=== PATIENT | female | born 1975 | race Caucasian/White ===

== ENCOUNTER 2017-04-07 12:55 | Emergency (ER) | payer MEDICAID, OTHER ==
[~2017-04-07] VITALS: Ht 160 cm; Wt 98.4 kg
[2017-04-07 13:01] VITALS: BP 131/83
== END 2017-04-07 13:39 | disposition home or self-care (01) ==
LOC: ER 12:55
DX: J37.0 Chronic laryngitis (principal)

== ENCOUNTER 2019-07-30 12:04 | Emergency (ER) | payer OTHER, MEDICAID ==
[~2019-07-30] VITALS: Ht 157.5 cm; Wt 88.5 kg
[2019-07-30 13:08] LABS: Basophils # (auto) 0 uL; Basophils % (auto) 0.3 % (0.0-2.0); Eosinophils # (auto) 0.1 uL; Eosinophils % (auto) 0.6 % (0.0-7.0); Hemoglobin 14.4 g/dL (12.2-16.2); Mean Corpuscular Hemoglobin 31.8 pg (28.0-32.0); Mean Corpuscular Hgb Conc. 33.6 g/dL (32.0-36.0); Mean Corpuscular Volume 94.5 fL (80.0-100.0); Monocytes # (auto) 0.7 uL; Monocytes % (auto) 6.3 % (0.0-12.0); Neutrophils # (auto) 9.2 uL; Neutrophils % (auto) 83.8 % (37.0-80.0); Platelet Count (auto) 274 10^3/uL (140-450); Red Blood Cells 4.54 10^6/uL (4.0-5.20); Red Cell Distribution Width 13.7 % (11.8-14.3)
[2019-07-30 13:24] LABS: Albumin 3.9 g/dL (3.4-5.0); Anion Gap 7 (5-15); Blood Urea Nitrogen 9 mg/dL (7-18); Calcium 8.5 mg/dL (8.5-10.1); Carbon Dioxide 24 mmol/L (21-32); Chloride 106 mmol/L (98-107); Glucose 105 mg/dL (74-106); Potassium 3.7 mmol/L (3.5-5.1); Sodium 137 mmol/L (136-145)
[2019-07-30 13:30] LABS: Alanine Aminotransferase 21 U/L (13-56); Alkaline Phosphatase 63 U/L (45-117); Aspartate Aminotransferase 13 U/L (15-37); BUN/Creatinine Ratio 11.5; Bilirubin, Total 0.7 mg/dL (0.2-1.0); GFR African American 104 mL/min; GFR Non-African American 86 mL/min; INR 0.96 (0.9-1.15); Partial Thromboplastin Time 28.4 sec (23.64-32.05); Total Protein 7.4 g/dL (6.4-8.2)
[2019-07-30 19:36] VITALS: BP 138/80
== END 2019-07-30 20:40 | disposition home or self-care (01) ==
LOC: ER 12:04
DX: K21.9 Gastro-esophageal reflux disease without esophagitis (principal)
CPT/HCPCS: 36415; 71045; 80053; 84484; 85025; 85379; 85610; 85730; 93005

== ENCOUNTER 2022-07-21 13:39 | Inpatient (IN) | payer BC, MEDICAID ==
[~2022-07-21] VITALS: Ht 160 cm; Wt 85.0 kg
[2022-07-21] MEDS ORDERED: ONDANSETRON HCL 4 MG/2 ML VIAL IV ONE (14:00)
[2022-07-21] MEDS ORDERED: PANTOPRAZOLE 40 MG/10 ML VIAL INJ IV ONE (14:00)
[2022-07-21 14:05] LABS: Basophils # (auto) 0 10 ^3/uL (0-0.2); Basophils % (auto) 0.4 % (0.0-2.0); Eosinophils # (auto) 0.1 10 ^3/uL (0-0.8); Eosinophils % (auto) 0.8 % (0.0-7.0); Hematocrit 43.3 % (36.0-46.0); Hemoglobin 14.4 g/dL (12.2-16.2); Lymphocytes # (auto) 1.5 10 ^3/uL (0.4-5.4); Lymphocytes % (auto) 12.7 % (10.0-50.0); Mean Corpuscular Hemoglobin 31.8 pg (28.0-32.0); Mean Corpuscular Hgb Conc. 33.2 g/dL (32.0-36.0); Mean Corpuscular Volume 95.8 fL (80.0-100.0); Monocytes # (auto) 0.8 10 ^3/uL (0-1.3); Monocytes % (auto) 7.1 % (0.0-12.0); Neutrophils # (auto) 9.1 10 ^3/uL (1.6-8.6); Red Blood Cells 4.52 10^6/uL (4.0-5.20); Red Cell Distribution Width 13.9 % (11.8-14.3); White Blood Cell 11.5 10^3/uL (4.4-10.8)
[2022-07-21 14:21] LABS: Calcium 8.8 mg/dL (8.5-10.1); Potassium 3.8 mmol/L (3.5-5.1)
[2022-07-21 14:24] LABS: Albumin 3.8 g/dL (3.4-5.0); BUN/Creatinine Ratio 9.9
[2022-07-21 14:27] LABS: Bilirubin, Total 1.6 mg/dL (0.2-1.0)
[2022-07-21 14:37] LABS: INR 0.91 (0.9-1.15); Partial Thromboplastin Time 29.5 sec (24.6-33.4)
[2022-07-21] MEDS ORDERED: MORPHINE SULFATE 4 MG/ML SYR/VIAL IV ONE (17:00)
[2022-07-21] MEDS ORDERED: NITROGLYCERIN 0.4 MG SL TAB SL PRN (17:00)
[2022-07-21] MEDS ORDERED: MORPHINE SULFATE INJ 2 MG/ml SYRG IV PRN (17:00)
[2022-07-21] MEDS ORDERED: SODIUM CHLORIDE 0.9% 1,000 ML IV ONE (17:00)
[2022-07-21] MEDS: PIPERACILLIN-TAZOB 3.375GM 100 ML IV SCH ×2 (17:27→18:00)
[2022-07-21] MEDS ORDERED: D5W/SOD CHL 0.45%/KCL 20MEQ 1,000 ML IV ONE (17:45)
[2022-07-21] MEDS: ONDANSETRON HCL 4 MG/2 ML VIAL IV PRN (20:06)
[2022-07-21] MEDS: MORPHINE SULFATE INJ 2 MG/ml SYRG IV PRN (20:15)
[2022-07-21] MEDS: hydrALAZINE HCL 20 MG/ML VL IV PRN (20:15)
[2022-07-22] MEDS: PIPERACILLIN-TAZOB 3.375GM 100 ML IV SCH ×4 (00:06→18:32)
[2022-07-22] MEDS: ONDANSETRON HCL 4 MG/2 ML VIAL IV PRN ×2 (00:07→04:11)
[2022-07-22] MEDS: hydrALAZINE HCL 20 MG/ML VL IV PRN ×2 (05:27→21:17)
[2022-07-22 05:50] LABS: Basophils # (auto) 0 10 ^3/uL (0-0.2); Basophils % (auto) 0.1 % (0.0-2.0); Eosinophils # (auto) 0 10 ^3/uL (0-0.8); Hematocrit 42.4 % (36.0-46.0); Hemoglobin 13.8 g/dL (12.2-16.2); Lymphocytes # (auto) 0.7 10 ^3/uL (0.4-5.4); Lymphocytes % (auto) 4.5 % (10.0-50.0); Mean Corpuscular Hemoglobin 31.4 pg (28.0-32.0); Mean Corpuscular Hgb Conc. 32.6 g/dL (32.0-36.0); Mean Corpuscular Volume 96.2 fL (80.0-100.0); Monocytes # (auto) 0.7 10 ^3/uL (0-1.3); Monocytes % (auto) 4.6 % (0.0-12.0); Neutrophils # (auto) 13.2 10 ^3/uL (1.6-8.6); Neutrophils % (auto) 90.8 % (37.0-80.0); Red Blood Cells 4.41 10^6/uL (4.0-5.20); White Blood Cell 14.5 10^3/uL (4.4-10.8)
[2022-07-22 05:59] LABS: Calcium 8.4 mg/dL (8.5-10.1); Potassium 4.3 mmol/L (3.5-5.1)
[2022-07-22 06:05] LABS: Albumin 3.6 g/dL (3.4-5.0); BUN/Creatinine Ratio 7.8; Bilirubin, Total 1.5 mg/dL (0.2-1.0); Total Protein 7.2 g/dL (6.4-8.2)
[2022-07-22] MEDS ORDERED: BUPIVACAINE 0.5% P/F INJ 10 ML VIAL ONE (06:48)
[2022-07-22] MEDS ORDERED: METHYLENE BLUE 0.5% 5MG/ML 10ml AMP IV ONE (06:48)
[2022-07-22] MEDS ORDERED: SUCCINYLCHOLINE CHLORIDE 20 MG/ML 10ML VIAL IV ONE (06:58)
[2022-07-22] MEDS ORDERED: ROCURONIUM 10MG/ML 10ML VIAL IV ONE (06:58)
[2022-07-22] MEDS ORDERED: MORPHINE SULFATE INJ 2 MG/ml SYRG IV PRN (07:15)
[2022-07-22] MEDS ORDERED: METOCLOPRAMIDE HCL 5MG/ml INJ 2ml VIAL IV PRN (07:15)
[2022-07-22] MEDS ORDERED: HYDROmorphone HCL 2 MG/ML VL/or syr IV PRN ×2 (07:15)
[2022-07-22] MEDS ORDERED: MIDAZOLAM HCL 2MG/2ML 2ml VIAL (1mg/ml) ONE (07:18)
[2022-07-22] MEDS ORDERED: fentaNYL CITRATE 100 MCG/2 ML VL ONE (07:18)
[2022-07-22] MEDS ORDERED: DexAMETHasone SOD PHOS 10MG/1ML VIAL INJ ONE (07:19)
[2022-07-22] MEDS ORDERED: SODIUM CHLORIDE LOCK 10 ML ONE (07:19)
[2022-07-22] MEDS ORDERED: NEOSTIGMINE 1 MG/ML INJ (10mg/10ML VIAL) ONE (07:19)
[2022-07-22] MEDS ORDERED: GLYCOPYRROLATE 0.2 MG/ML 1ML VIAL ONE (07:19)
[2022-07-22] MEDS ORDERED: PROPOFOL 10 MG/ML 20 ML IV ONE (07:19)
[2022-07-22] MEDS ORDERED: MEPERIDINE HCL (50 MG/ML) 1 ML VIAL ONE (07:19)
[2022-07-22] MEDS: LIDOCAINE W/ EPINEPHRINE 1% 20ML VIAL ONE ×2 (08:21→09:45)
[2022-07-22] MEDS ORDERED: ceFAZolin 1GM/50ML 100 ML IV ONE (08:42)
[2022-07-22] MEDS ORDERED: HYDROmorphone HCL 2 MG/ML VL/or syr IV ONE (10:30)
[2022-07-22] MEDS: D5W/SOD CHL 0.45%/KCL 20MEQ 1,000 ML IV SCH (14:30)
[2022-07-22 22:00] VITALS: BP 164/87
[2022-07-22] MEDS: ACETAMINOPHEN 325 MG TAB PO PRN (23:25)
[2022-07-23] MEDS: D5W/SOD CHL 0.45%/KCL 20MEQ 1,000 ML IV SCH ×3 (00:03→19:50)
[2022-07-23] MEDS: PIPERACILLIN-TAZOB 3.375GM 100 ML IV SCH ×4 (00:40→19:39)
[2022-07-23 05:00] VITALS: BP 146/80
[2022-07-23 05:29] LABS: Basophils # (auto) 0 10 ^3/uL (0-0.2); Basophils % (auto) 0.2 % (0.0-2.0); Eosinophils # (auto) 0 10 ^3/uL (0-0.8); Eosinophils % (auto) 0.1 % (0.0-7.0); Hematocrit 38.3 % (36.0-46.0); Hemoglobin 12.3 g/dL (12.2-16.2); Lymphocytes # (auto) 1.5 10 ^3/uL (0.4-5.4); Lymphocytes % (auto) 12.2 % (10.0-50.0); Mean Corpuscular Hemoglobin 31.1 pg (28.0-32.0); Mean Corpuscular Hgb Conc. 32.2 g/dL (32.0-36.0); Mean Corpuscular Volume 96.7 fL (80.0-100.0); Monocytes # (auto) 0.9 10 ^3/uL (0-1.3); Monocytes % (auto) 7.9 % (0.0-12.0); Neutrophils # (auto) 9.6 10 ^3/uL (1.6-8.6); Neutrophils % (auto) 79.6 % (37.0-80.0); Red Blood Cells 3.96 10^6/uL (4.0-5.20)
[2022-07-23] MEDS: ACETAMINOPHEN 325 MG TAB PO PRN ×2 (05:29→21:57)
[2022-07-23 05:41] LABS: Albumin 3.1 g/dL (3.4-5.0); Calcium 7.8 mg/dL (8.5-10.1); Potassium 3.5 mmol/L (3.5-5.1)
[2022-07-23 05:45] LABS: BUN/Creatinine Ratio 6.8; Bilirubin, Total 1.7 mg/dL (0.2-1.0); Total Protein 5.8 g/dL (6.4-8.2)
[2022-07-23] MEDS ORDERED: ONDA-144 PO (08:31)
[2022-07-23] MEDS ORDERED: ACET325T10 PO (08:31)
[2022-07-23 08:49] VITALS: BP 136/77
[2022-07-23] MEDS: PANTOPRAZOLE 40 MG/10 ML VIAL INJ IV SCH (10:00)
[2022-07-23] MEDS: MORPHINE SULFATE INJ 2 MG/ml SYRG IV PRN (12:01)
[2022-07-23] MEDS: ONDANSETRON HCL 4 MG/2 ML VIAL IV PRN ×2 (12:01→15:02)
[2022-07-23 12:53] VITALS: BP 159/93
[2022-07-23] MEDS: hydrALAZINE HCL 20 MG/ML VL IV PRN (16:18)
[2022-07-23 17:04] VITALS: BP 183/100
[2022-07-23] MEDS ORDERED: LORazepam 2MG/ML-1ML VIAL IV ONE (20:45)
[2022-07-23] MEDS ORDERED: METOCLOPRAMIDE HCL 5MG/ml INJ 2ml VIAL IV PRN (20:45)
[2022-07-23] MEDS ORDERED: LACTULOSE 20Gm/30ML SOLN PO ONE (20:45)
[2022-07-23 22:00] VITALS: BP 176/97
[2022-07-24] MEDS: PIPERACILLIN-TAZOB 3.375GM 100 ML IV SCH ×4 (00:35→17:21)
[2022-07-24] MEDS: D5W/SOD CHL 0.45%/KCL 20MEQ 1,000 ML IV SCH ×3 (04:10→17:22)
[2022-07-24 05:00] VITALS: BP 145/84
[2022-07-24 06:29] LABS: Basophils # (auto) 0 10 ^3/uL (0-0.2); Basophils % (auto) 0.4 % (0.0-2.0); Eosinophils # (auto) 0 10 ^3/uL (0-0.8); Eosinophils % (auto) 0.3 % (0.0-7.0); Hematocrit 35.3 % (36.0-46.0); Hemoglobin 11.9 g/dL (12.2-16.2); Lymphocytes # (auto) 1.2 10 ^3/uL (0.4-5.4); Mean Corpuscular Hemoglobin 32.7 pg (28.0-32.0); Mean Corpuscular Hgb Conc. 33.8 g/dL (32.0-36.0); Mean Corpuscular Volume 96.7 fL (80.0-100.0); Monocytes # (auto) 0.9 10 ^3/uL (0-1.3); Monocytes % (auto) 9.2 % (0.0-12.0); Neutrophils # (auto) 7.4 10 ^3/uL (1.6-8.6); Neutrophils % (auto) 77.1 % (37.0-80.0); Red Blood Cells 3.65 10^6/uL (4.0-5.20); Red Cell Distribution Width 13.7 % (11.8-14.3); White Blood Cell 9.6 10^3/uL (4.4-10.8)
[2022-07-24 06:32] LABS: Potassium 3.4 mmol/L (3.5-5.1)
[2022-07-24 06:39] LABS: BUN/Creatinine Ratio 5.6; Bilirubin, Total 1.3 mg/dL (0.2-1.0); Calcium 7.5 mg/dL (8.5-10.1); Total Protein 5.8 g/dL (6.4-8.2)
[2022-07-24 08:30] VITALS: BP 163/90
[2022-07-24] MEDS ORDERED: LORazepam 0.5 MG TAB PO PRN (09:30)
[2022-07-24] MEDS ORDERED: HYDROcodone-ACET 5/325MG TAB PO PRN (09:30)
[2022-07-24] MEDS: PANTOPRAZOLE 40 MG/10 ML VIAL INJ IV SCH (10:32)
[2022-07-24 17:00] VITALS: BP 139/83
[2022-07-24 17:23] VITALS: BP 149/65
== END 2022-07-24 19:00 | disposition home or self-care (01) | DRG 419 ==
LOC: ER 13:39 → TELE 16:54 → TELE-WESTW 07-22 16:36 → WEST WING 07-22 18:22
PROVIDERS: ADMIT Internal Medicine; ATTEND Internal Medicine
PROC: 0FT44ZZ Resection of Gallbladder, Percutaneous Endoscopic Approach (ICD-10-PCS; principal; 2022-07-22 09:15)
DX: K80.10 Calculus of gallbladder with chronic cholecystitis without obstruction (principal); Z20.822 Contact with and (suspected) exposure to COVID-19; E66.9 Obesity, unspecified; Z98.84 Bariatric surgery status; Z68.33 Body mass index [BMI] 33.0-33.9, adult
CPT/HCPCS: 36415; 71045; 76705; 80053; 83690; 84484; 84702; 85025; 85610; 85730; 86850; 86900; 86901; 87426; 93005; 96374; 96375; C9113; G0378; J0330; J0690; J1100; J2250; J2405; J2543; J2704; J3490

== ENCOUNTER 2022-08-06 17:10 | Emergency (ER) | payer BC, MEDICAID ==
[~2022-08-06] VITALS: Ht 162.6 cm; Wt 82.4 kg
[~2022-08-06 17:10] MED LIST: ACET325T10 PO; ONDA-144 PO
[2022-08-06 18:27] VITALS: BP 100/55
[2022-08-06 19:22] LABS: Basophils # (auto) 0.1 10 ^3/uL (0-0.2); Basophils % (auto) 0.3 % (0.0-2.0); Eosinophils # (auto) 0 10 ^3/uL (0-0.8); Eosinophils % (auto) 0.2 % (0.0-7.0); Monocytes # (auto) 0.9 10 ^3/uL (0-1.3)
[2022-08-06 19:23] LABS: Hemoglobin 13.3 g/dL (12.2-16.2); Lymphocytes # (auto) 0.6 10 ^3/uL (0.4-5.4); Mean Corpuscular Hemoglobin 30.6 pg (28.0-32.0); Mean Corpuscular Hgb Conc. 32.5 g/dL (32.0-36.0); Mean Corpuscular Volume 94.2 fL (80.0-100.0); Monocytes % (auto) 4.5 % (0.0-12.0); Neutrophils # (auto) 18.4 10 ^3/uL (1.6-8.6); Nucleated Red Blood Cells % 0.1 %; Red Blood Cells 4.36 10^6/uL (4.0-5.20); Red Cell Distribution Width 13.8 % (11.8-14.3)
[2022-08-06 19:44] LABS: Albumin 3.1 g/dL (3.4-5.0); BUN/Creatinine Ratio 11.8; Calcium 8.9 mg/dL (8.5-10.1); Potassium 4.3 mmol/L (3.5-5.1)
[2022-08-06 19:47] LABS: Bilirubin, Total 0.5 mg/dL (0.2-1.0); Total Protein 7.2 g/dL (6.4-8.2)
[2022-08-06] MEDS ORDERED: IOHEXOL 350 MG/ML 100ML IJ ONE (21:55)
[2022-08-06 22:43] LABS: Urine Bacteria NONE SEEN /hpf (None Seen); Urine Blood Negative /uL (Negative); Urine Mucus MANY (None Seen); Urine Specific Gravity 1.021 (1.001-1.035); Urine WBC 3 /hpf (0 - 5)
[2022-08-07] MEDS ORDERED: HYDROcodone-ACET 5/325MG TAB PO ONE (03:00)
[2022-08-07] MEDS ORDERED: PIPERACILLIN-TAZOB 3.375GM 100 ML IV ONE (04:15)
== END 2022-08-07 04:48 | disposition left against medical advice (07) ==
LOC: ER 17:10
DX: T81.49XA Infection following a procedure, other surgical site, initial encounter (principal); Z90.49 Acquired absence of other specified parts of digestive tract
CPT/HCPCS: 36415; 71045; 74177; 80053; 81001; 83690; 85025; 99285; Q9967